=== PATIENT | male | born 1950 | race Caucasian/White ===

== ENCOUNTER → 2018-12-05 | Outpatient (CLI) | payer MEDICARE, OTHER | LOC: COL.LAB 10:50 | DX: Z01.812 Encounter for preprocedural laboratory examination (principal) ==

== ENCOUNTER 2019-08-22 09:35 | Emergency (ER) | payer MEDICARE, OTHER ==
[~2019-08-22] VITALS: Ht 182.9 cm; Wt 104.5 kg
[2019-08-22 09:44] VITALS: PULSE 75; TEMP 97.8
[2019-08-22] MEDS ORDERED: PERCOCET 325 MG1 TA2 PO (09:51)
[2019-08-22] MEDS ORDERED: COLACE 100100 MG/CAP PO (09:51)
[2019-08-22 10:23] VITALS: BP 165/92
== END 2019-08-22 10:20 | disposition home or self-care (01) ==
LOC: COL.ER 09:35
DX: R04.0 Epistaxis (principal)

== ENCOUNTER 2024-05-08 07:36 | Day surgery (SDC) | payer MEDICARE, OTHER ==
[~2024-05-08] VITALS: Ht 183 cm; Wt 107.6 kg
[~2024-05-08 07:36] MED LIST: COLACE 100100 MG/CAP PO; ELIQUIS 5MG PO; LR 1,000 ML IV SCH; PACERONE400 MG PO; PERCOCET 325 MG1 TA2 PO; PRIL40 PO
[2024-05-08] MEDS ORDERED: NS Flush 10 ML SYRINGE PRN ICA (08:00)
[2024-05-08 08:19] VITALS: BP 148/93; PULSE 76; TEMP 97.7
[2024-05-08 08:24] LABS: HEMATOCRIT 47.2 % (42.0-52.0); MEAN CELL VOLUME 90 fl (80.0-100.0); MEAN CORPUSCULAR HEMOGLOBIN 31 pg (27-31); MEAN CORPUSCULAR HGB CONC 34 g/dl (33.0-37.0); MEAN PLATELET VOLUME 9.4 fl (7.4-10.4); PLATELET COUNT 209 K/mm3 (130-400); RED BLOOD COUNT 5.24 M/mm3 (4.20-5.60); REDCELL DISTRIBUTION WIDTH-CV 14.7 % (11.5-14.5)
[2024-05-08 08:28] LABS: INR 1.6 (0.8-3.0); PROTHROMBIN TIME 17.6 SECONDS (9.7-12.8)
[2024-05-08] MEDS ORDERED: COZAAR 25MG25 MG/TAB PO (08:28)
[2024-05-08 08:30] LABS: PARTIAL THROMBOPLASTIN TIME 40.3 SECONDS (26.0-37.0)
[2024-05-08 08:41] LABS: POTASSIUM 4.3 mEq/L (3.5-4.5)
[2024-05-08] MEDS ORDERED: NS Flush 10 ML SYRINGE BID ICA SCH (09:00)
[2024-05-08 09:01] LABS: THYROID STIMULATING HORMONE 2.778 uIU/mL (0.350-4.940)
[2024-05-08] MEDS ORDERED: Lidocaine PF 2% (20 MG/ML) 5 ML VIAL ONE (09:27)
--- NOTE | 2024-05-08 10:09 | NUR ---
Please see anesthesia and moderate sedation flowsheet for record of interventions, vitals and medications administered during cardioversion with Dr. Jenkins. Pt did convert to SR with one 200 joule shock at 0954. Pt still sleeping, but is back on room air, maintaining sats >92%; repeat EKG has been obtained. He remains in sinus bradycardia rate 57. wctm
[2024-05-08 10:30] VITALS: BP 136/118; PULSE 56
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
[2024-05-08 10:45] VITALS: BP 131/80; PULSE 54
[2024-05-08 11:00] VITALS: BP 126/76; PULSE 53
[2024-05-08 11:15] VITALS: BP 136/84; PULSE 52
[2024-05-08 11:30] VITALS: BP 132/91; PULSE 52
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
== END 2024-05-08 11:33 | disposition home or self-care (01) ==
LOC: COL.CAR 07:36
PROVIDERS: Internal Medicine Cardiovascular Disease
DX: I48.91 Unspecified atrial fibrillation (principal)
CPT/HCPCS: J2704; J7120